=== PATIENT | male | born 1995 | race Caucasian/White ===

== ENCOUNTER 2017-01-17 22:56 | Emergency (ER) | payer OTHER ==
[~2017-01-17] VITALS: Ht 182.9 cm; Wt 147.4 kg
[2017-01-18] MEDS ORDERED: ONDANSETRON 4 MG (ZOFRAN) ORAL DISSOLVE TAB SL STA (00:01)
[2017-01-18] MEDS ORDERED: LACTATED RINGERS 1,000 ML IV ONE (00:32)
[2017-01-18 00:36] LABS: BILIRUBIN,URINE 1+ (NEGATIVE); KETONES,URINE 1+ (NEGATIVE); LEUKOCYTE ESTERASE ,URINE 1+ (NEGATIVE); NITRITE,URINE NEGATIVE (NEGATIVE); PH,URINE 5 (5-9); PROTEIN,URINE 2+ (NEGATIVE); UROBILINOGEN,URINE 1 MG/DL (NORMAL)
[2017-01-18 00:38] LABS: CALCIUM OXALATE CRYSTALS,UR RARE /LPF; SQUAMOUS EPITHELIAL CELL,UR RARE /HPF
[2017-01-18 00:39] LABS: WBC,URINE RARE /HPF
[2017-01-18 00:49] LABS: BASOPHILS % (AUTO) 0 % (0-10); EOSINOPHILS # (AUTO) 0.1 10^3/uL (0.0-0.3); EOSINOPHILS % (AUTO) 1 % (0-10); LYMPHOCYTES # (AUTO) 1.1 X 10^3 (1.0-4.0); LYMPHOCYTES % (AUTO) 6 % (12-44); MEAN CORPUSCULAR HEMOGLOBIN 30 PG (25-34); MEAN CORPUSCULAR HGB CONC 34 G/DL (32-36); MEAN CORPUSCULAR VOLUME 88 FL (80-99); MEAN PLATELET VOLUME 9.8 FL (7.4-10.4); MONOCYTES # (AUTO) 1.2 X 10^3 (0.0-1.0); MONOCYTES % (AUTO) 7 % (0-12); NEUTROPHILS % (AUTO) 86 % (42-75); PLATELET COUNT 205 10^3/uL (130-400); RED BLOOD COUNT 5.12 10^6/uL (4.35-5.85); RED CELL DISTRIBUTION WIDTH 12.4 % (10.0-14.5); WHITE BLOOD COUNT 17.5 10^3/uL (4.3-11.0)
[2017-01-18 01:11] LABS: BAND NEUTROPHILS 6 %; BASOPHILS % (MANUAL) 0 %; EOSINOPHILS % (MANUAL) 1 %; LYMPHOCYTES % (MANUAL) 6 %; NEUTROPHILS % (MANUAL) 78 %; REACTIVE LYMPHOCYTES 1 %
[2017-01-18 01:12] LABS: ALANINE AMINOTRANSFERASE 24 U/L (0-55); ALBUMIN 4.6 GM/DL (3.2-4.5); ALCOHOL < 10 MG/DL (<10); AMYLASE 47 U/L (25-125); ANION GAP 13 MMOL/L (5-14); ASPARTATE AMINO TRANSFERASE 20 U/L (5-34); BILIRUBIN,TOTAL 0.7 MG/DL (0.1-1.0); BLOOD UREA NITROGEN 13 MG/DL (7-18); BUN/CREATININE RATIO 11; CALCIUM 9.7 MG/DL (8.5-10.1); CARBON DIOXIDE 24 MMOL/L (21-32); CHLORIDE 104 MMOL/L (98-107); CREATININE SERUM 1.14 MG/DL (0.60-1.30); GFR ESTIMATED > 60; GLUCOSE 104 MG/DL (70-105); LIPASE 21 U/L (8-78); POTASSIUM 4.3 MMOL/L (3.6-5.0); SODIUM 141 MMOL/L (135-145)
[2017-01-18] MEDS ORDERED: PANTOPRAZOLE 40 MG/10 ML (PROTONIX) VIAL IV ONE (01:15)
[2017-01-18] MEDS ORDERED: IOHEXOL 350 MG/ML 100 ML (OMNIPAQUE 350) VIAL IV ONE (01:30)
[2017-01-18] MEDS ORDERED: NS 100 ML (IVPB) BAG IV ONE (01:30)
[2017-01-18] MEDS ORDERED: RX-HYOSCYAMINE 0.125 MG SL (LEVSIN) PPK#6 SL STA (02:13)
[2017-01-18] MEDS ORDERED: RX-ONDANSETRON 4 MG ODT (ZOFRAN) PPK #4 PO STA (02:13)
[2017-01-18] MEDS ORDERED: PANT40TA2 PO (02:19)
[2017-01-18] MEDS ORDERED: ONDA4TAB8 PO (02:19)
[2017-01-18] MEDS ORDERED: HYOS0.1283 SL (02:19)
--- NOTE | 2017-01-18 02:19 | ED GI ---
General Chief Complaint: Abdominal/GI Problems Stated Complaint: VOMITING WITH TRACES OF BLOOD Nursing Triage Note: PT TO ED 6 W/ C/O VOMITING X2 ET DIARRHEA X1 BETTING CLERKS. REPORTS SECOND TIME HE VOMITED IT APPEARED TO BE "BLOOD TINGED". PT ALSO STATES HE FEELS LIGHTHEADED ET "EXHAUSTION IN HIS BODY." NO OTHER C/O VOICED Sepsis Screen: No Definite Risk Source of Information: Patient History of Present Illness Time Seen By Provider: 23:25 Initial Comments PT C/O NAUSEA, VOMITING AND DIARRHEA--BEGAN JUST PRIOR TO ARRIVAL HAS VOMITED X 2 AT HOME, AND STATES HE VOMITED X 1 HERE IN WAITING ROOM--NOT WITNESSED STATES THE SECOND TIME HE VOMITED AT HOME "IT HAD A LITTLE BIT OF BLOOD IN IT" HAS HAD DIARRHEA X 2--ONCE AT HOME AND ONCE HERE IN WAITING ROOM--NO BLACK/ BLOODY/TARRY STOOLS NO FEVER HAS MILD LOWER ABDOMINAL CRAMPING JUST BEFORE THE VOMITS OR HAS DIARRHEA, THEN GOES AWAY AFTER VOMITING OR HAVING DIARRHEA VOIDED IN WAITING ROOM NO KNOWN SICK CONTACTS OR SUSPICIOUS FOODS NO HISTORY OF [facility] AT[facility] AT 1830 TONIGHT--FRIED CHICKEN SANDWICH, POTATO WEDGES AND A COOKIE. SAMUEL FULLER EARLIER TODAY STATES HE FEELS A LITTLE DIZZY AND FEELS "EXHAUSTION IN MY BODY" [employer] Allergies and Home Medications Allergies Coded Allergies: Penicillins (Verified Allergy, Unknown, 01/17/17) Home Medications Hyoscyamine Sulfate 0.125 Mg Tab.subl, 1-2 TAB SL Q4H, #15 Prescribed by: RAQUEL LEWIS on 01/18/17218 Ondansetron 4 Mg Tab.rapdis, 4 MG PO Q4H, #10 Prescribed by: RAQUEL LEWIS on 01/18/17218 Pantoprazole Sodium 40 Mg Tablet.dr, 40 MG PO DAILY, #15 Prescribed by: RAQUEL LEWIS on 01/18/17218 Review of Systems Constitutional: see HPI, No chills, No diaphoresis, dizziness, No fever, malaise, weakness EENTM: No Symptoms Reported Respiratory: No Symptoms Reported Cardiovascular: No Symptoms Reported Gastrointestinal: See HPI, Abdominal Pain, Diarrhea, Nausea, Poor Appetite, Poor Fluid Intake, Denies Rectal Bleeding, Vomiting Genitourinary: No Symptoms Reported Musculoskeletal: no symptoms reported Skin: no symptoms reported Psychiatric/Neurological: No Symptoms Reported Endocrine: No Symptoms Reported Hematologic/Lymphatic: No Symptoms Reported Past Nhrgdgm-Dwrslk-Damlkq Hx Patient Social History Alcohol Use: Regular Use (EVERY 1-2 WEEKS) Recreational Drug Use: Yes (THC) Smoking Status: Current Everyday Smoker (1/2 PPD, PLUS CHEWS TOBACCO) Type Used: Cigarettes, Smokeless Tobacco Recent Foreign Travel: No Contact w/Someone Who Travel: No Recent Infectious Disease Expo: No Recent Hopitalizations: No Surgeries HX Surgeries: No Respiratory Hx Respiratory Disorders: No Cardiovascular Hx Cardiac Disorders: Yes (QUIT TAKING MEDICATIONS) Cardiac Disorders: Hypertension Neurological Hx Neurological Disorders: No Reproductive System Hx Reproductive Disorders: No Genitourinary Hx Genitourinary Disorders: No Gastrointestinal Hx Gastrointestinal Disorders: No Musculoskeletal Hx Musculoskeletal Disorders: No Endocrine Hx Endocrine Disorders: No (OBESITY) HEENT HX ENT Disorders: No Cancer Hx Cancer: No Psychosocial Hx Psychiatric Problems: No Integumentary HX Skin/Integumentary Disorder: No Blood Transfusions Hx Blood Disorders: No Physical Exam Vital Signs VS - Last 72 Hours, by Label 01/17/17 01/18/17 23:16 00:33 Temp 98.0 Pulse 109 94 104 86 Resp 20 B/P (MAP) 139/95 Pulse Ox 97 O2 Delivery Room Air Capillary Refill : Less Than 3 Seconds General Appearance: no apparent distress, obese, other (DOES NOT APPEAR ILL) HEENT: PERRL/EOMI, normal ENT inspection, other (ORAL MUCOSA MOIST) Neck: normal inspection Respiratory: normal breath sounds, no respiratory distress, no accessory muscle use Cardiovascular: normal peripheral pulses, regular rate, rhythm, no murmur Gastrointestinal: normal bowel sounds, soft, no organomegaly, no pulsatile mass , No distended, No guarding, No rebound, tenderness (MILD EPIGASTRIC AND LUQ TENDERNESS), No hernia, No mass Extremities: normal inspection, normal capillary refill Back: normal inspection, no CVA tenderness 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, no motor/sensory deficits, alert, normal mood/affect, oriented x 3 Skin: normal color, warm/dry Progress/Results/Core Measures Results/Orders Lab Results Laboratory Tests Test 01/18/17 00:15 01/18/17 00:41 Range/Units Urine Color DARK YELLOW Urine Clarity SLIGHTLY CLOUDY Urine pH 5 5-9 Urine Specific [place] 1.025 H 1.016-1.022 Urine Protein 2+ H NEGATIVE Urine Glucose (UA) NEGATIVE NEGATIVE Urine Ketones 1+ H NEGATIVE Urine Nitrite NEGATIVE NEGATIVE Urine Bilirubin 1+ H NEGATIVE Urine Urobilinogen 1 NORMAL MG/DL Urine Leukocyte Esterase 1+ H NEGATIVE Urine RBC (Auto) NEGATIVE NEGATIVE Urine RBC NONE /HPF Urine WBC RARE /HPF Urine Squamous Epithelial Cells RARE /HPF Urine Crystals PRESENT H /LPF Urine Calcium Oxalate Crystals RARE H /LPF Urine Bacteria LARGE H /HPF Urine Casts NONE /LPF Urine Mucus MODERATE H /LPF Urine Culture Indicated YES Urine Opiates Screen NEGATIVE NEGATIVE Urine Oxycodone Screen NEGATIVE NEGATIVE Urine Methadone Screen NEGATIVE NEGATIVE Urine Propoxyphene Screen NEGATIVE NEGATIVE Urine Barbiturates Screen NEGATIVE NEGATIVE Ur Tricyclic Antidepressants Screen NEGATIVE NEGATIVE Urine Phencyclidine Screen NEGATIVE NEGATIVE Urine Amphetamines Screen NEGATIVE NEGATIVE Urine Methamphetamines Screen POSITIVE H NEGATIVE Urine Benzodiazepines Screen NEGATIVE NEGATIVE Urine Cocaine Screen NEGATIVE NEGATIVE Urine Cannabinoids Screen NEGATIVE NEGATIVE White Blood Count 17.5 H 4.3-11.0 10^3/uL Red Blood Count 5.12 4.35-5.85 10^6/uL Hemoglobin 15.5 13.3-17.7 G/DL Hematocrit 45 40-54 % Mean Corpuscular Volume 88 80-99 FL Mean Corpuscular Hemoglobin 30 25-34 PG Mean Corpuscular Hemoglobin Concent 34 32-36 G/DL Red Cell Distribution Width 12.4 10.0-14.5 % Platelet Count 205 130-400 10^3/uL Mean Platelet Volume 9.8 7.4-10.4 FL Neutrophils (%) (Auto) 86 H 42-75 % Lymphocytes (%) (Auto) 6 L 12-44 % Monocytes (%) (Auto) 7 0-12 % Eosinophils (%) (Auto) 1 0-10 % Basophils (%) (Auto) 0 0-10 % Neutrophils # (Auto) 15.0 H 1.8-7.8 X 10^3 Lymphocytes # (Auto) 1.1 1.0-4.0 X 10^3 Monocytes # (Auto) 1.2 H 0.0-1.0 X 10^3 Eosinophils # (Auto) 0.1 0.0-0.3 10^3/uL Basophils # (Auto) 0.0 0.0-0.1 10^3/uL Neutrophils % (Manual) 78 % Lymphocytes % (Manual) 6 % Monocytes % (Manual) 5 % Eosinophils % (Manual) 1 % Basophils % (Manual) 0 % Band Neutrophils 6 % Reactive Lymphocytes 1 % Blood Morphology Comment NORMAL Sodium Level 141 135-145 MMOL/L Potassium Level 4.3 3.6-5.0 MMOL/L Chloride Level 104 98-107 MMOL/L Carbon Dioxide Level 24 21-32 MMOL/L Anion Gap 13 5-14 MMOL/L Blood Urea Nitrogen 13 7-18 MG/DL Creatinine 1.14 0.60-1.30 MG/DL Estimat Glomerular Filtration Rate > 60 BUN/Creatinine Ratio 11 Glucose Level 104 70-105 MG/DL Calcium Level 9.7 8.5-10.1 MG/DL Total Bilirubin 0.7 0.1-1.0 MG/DL Aspartate Amino Transf (AST/SGOT) 20 5-34 U/L Alanine Aminotransferase (ALT/SGPT) 24 0-55 U/L Alkaline Phosphatase 54 40-136 U/L Total Protein 8.0 6.4-8.2 GM/DL Albumin 4.6 H 3.2-4.5 GM/DL Amylase Level 47 25-125 U/L Lipase 21 8-78 U/L Serum Alcohol < 10 <10 MG/DL My Orders Orders - RAQUEL LEWIS DO Drug Screen Stat (Urine) (01/17/17 23:37) Ua Culture If Indicated (01/17/17 23:37) Orthostatic Vital Signs (01/17/17 23:37) Alcohol (01/18/17 00:01) Amylase (01/18/17 00:01) Cbc With Automated Diff (01/18/17 00:01) Comprehensive Metabolic Panel (01/18/17 00:01) Lipase (01/18/17 00:01) Ondansetron Oral Dissolve Tab (Zofran (01/18/17 00:01) Saline Lock/Iv-Start (01/18/17 00:32) Saline Lock/Iv-Start (01/18/17 00:32) Lactated Ringers (Lr 1000 Ml Iv Solution (01/18/17 00:32) Urine Culture (01/18/17 00:15) Manual Differential (01/18/17 00:41) Pantoprazole Injection (Protonix Injecti (01/18/17 01:15) Ct Abdomen/Pelvis W (01/18/17 01:05) Iohexol Injection (Omnipaque 350 Mg/Ml 1 (01/18/17 01:30) Ns (Ivpb) (Sodium Chloride 0.9% Ivpb Bag (01/18/17 01:30) Rx-Ondansetron Po (Rx-Zofran Po) (01/18/17 02:13) Rx-Hyoscyamine Tab (Rx-Levsin Sl) (01/18/17 02:13) Orthostatic Vital Signs (01/18/17 02:23) Medications Given in ED Current Medications Medications Dose Ordered Sig/Bernadette Route Start Time Stop Time Status Last Admin Dose Admin Iohexol 100 ml ONCE ONCE IV 01/18/17 01:30 01/18/17 01:55 DC 01/18/17 01:39 100 ML Lactated Ringer's 1,000 ml @ 0 mls/hr Q0M ONCE IV 01/18/17 00:32 01/18/17 00:33 DC 01/18/17 00:48 1,000 MLS/HR Pantoprazole 40 mg ONCE ONCE IV 01/18/17 01:15 01/18/17 01:16 DC 01/18/17 01:19 40 MG Sodium Chloride 80 ml ONCE ONCE IV 01/18/17 01:30 01/18/17 01:55 DC 01/18/17 01:39 80 ML Vital Signs/I&O Vital Sign - Last 12Hours 01/17/17 01/18/17 23:16 00:33 Temp 98.0 Pulse 109 94 104 86 Resp 20 B/P (MAP) 139/95 Pulse Ox 97 O2 Delivery Room Air Blood Pressure Mean: 110 Progress Note : Progress Note ORTHOSTATICS + ON ARRIVAL WITH SIGNIFICANT DROP IN BP, AND PT FELT VERY DIZZY ON STANDING. ORTHOSTATICS MUCH IMPROVED AT DISMISSAL WITH NO DROP IN BP AND PT NO LONGER DIZZY ON STANDING. NAUSEA RESOLVED AND NO VOMITING OR DIARRHEA DURING ER STAY PT TOLERATING WATER PRIOR TO DISMISSAL PT STATES HE FEELS MUCH BETTER, AND WANTS TO GO HOME. Diagnostic Imaging Comments CT ABDOMEN/PELVIS--MILDLY PROMINENT FLUID-FILLED PROXIMAL SMALL BOWEL LOOPS, MILD WALL THICKENING. SUGGESTIVE OF ENTERITIS-INFECTIOUS VS INFLAMMATORY, WITH MILDLY PROMINENT MESENTERIC LYMPH NODES, LIKELY REACTIVE. MILDLY ENLARGED SPLEEN. PER [facility] VIA FAX @ [id number] Reviewed: Reviewed by Me Departure Impression Impression: Primary Impression: Gastroenteritis Additional Impressions: Dehydration UTI (urinary tract infection) Illicit drug use Disposition: HOME, SELF-CARE Condition: Improved Departure-Patient Inst. Referrals: NO,LOCAL PHYSICIAN (PCP) Primary Care Physician ARON GILBERT MD Patient Instructions: Dehydration, Adult (DC), Urinary Tract Infection, Adult ( DC), Viral Gastroenteritis Add. Discharge Instructions: CLEAR LIQUIDS--WATER, BROTH, JELLO, GATORADE--DRINK ENOUGH SO YOU ARE URINATING EVERY 2-3 HOURS WHILE AWAKE AFTER 24 HOURS, ADD BRATS DIET TO CLEAR LIQUIDS--BANANAS, RICE, APPLESAUCE, TOAST, SALTINES ACIDOPHILUS 2 PILLS 4 TIMES A DAY X 1 WEEK FOLLOW UP WITH [employer] [facility] TOMORROW IF NO BETTER All discharge instructions reviewed with patient and/or family. Voiced understanding. Scripts Sulfamethoxazole/Trimethoprim (Bactrim Ds Tablet) 1 Each Tablet 1 EACH PO BID, #20 TAB Prov: RAQUEL LEWIS DO 01/18/17 Hyoscyamine Sulfate (Levsin-Sl) 0.125 Mg Tab.subl 1-2 TAB SL Q4H for Abdominal Pain, #15 TAB Prov: RAQUEL LEWIS DO 01/18/17 Ondansetron (Zofran Odt) 4 Mg Tab.rapdis 4 MG PO Q4H for Nausea/Vomiting, #10 TAB Prov: RAQUEL LEWIS DO 01/18/17 Pantoprazole Sodium (Protonix) 40 Mg Tablet.dr 40 MG PO DAILY, #15 TAB Prov: RAQUEL LEWIS DO 01/18/17 RAQUEL LEWIS DO Jan 18, 2017 02:19
[2017-01-18 03:14] VITALS: BP 141/89
[2017-01-18] MEDS ORDERED: SULF1TAB35 PO (03:40)
--- NOTE | 2017-01-18 07:34 | Diagnostic Imaging Report ---
PROCEDURE: CT abdomen and pelvis with contrast. TECHNIQUE: Multiple contiguous axial images were obtained through the abdomen and pelvis after administration of intravenous contrast. INDICATION: Abdominal pain. CONTRAST: 100 cc Omnipaque 350 was given intravenously. COMPARISON STUDIES: None FINDINGS: The lung bases are clear. No pleural effusion or ascites is present. There is borderline fatty infiltration of the liver with no focal abnormalities. The gallbladder appears normal. The spleen is mildly enlarged spanning up to 14.3 cm. Pancreas, adrenal glands and kidneys appear normal. There are a couple of right lower quadrant mesenteric lymph nodes largest one measuring up to 1.3 cm. The appendix appears normal. Small bowel loops are fluid-filled and mildly distended measuring up to 3 cm proximally. Mild bowel wall thickening is present more proximally. No ascites, free air or loculated fluid collections are present. The osseous structures appear normal. IMPRESSION: 1. Findings are suggestive of enteritis. 2. Some slightly prominent lymph nodes in the right lower quadrant mesentery possible mesenteric adenitis. These could also be reactive. 3. Mildly enlarged spleen. 4. Borderline fatty infiltration of the liver. Dictated by: Dictated on workstation # [id number]
--- OUTSIDE RECORDS SUMMARY | 2017-01-18 11:40 | XMS REPORT | Continuity of Care Document ---
Author Author [facility] Address Unknown Phone Unavailable Allergies Active Description Code Type Severity Reaction Onset Reported/Identified Relationship to Patient Clinical Status Yes Penicillins Drug Allergy N/A N/A 04/18/2013 Medications Problems Date Dx Coded Attending Type Code Diagnosis Diagnosed By 04/18/2013 OLIVE WOODRUFF MD 465.9 UPPER RESPIRATORY INFECTION Procedures Results Encounters ACCT No. Visit Date/Time Discharge Status Pt. Type Provider Facility Loc./Unit Complaint [id number] 04/18/2013 10:14:00 04/18/2013 23: 59:59 CLS Outpatient OLIVE WOODRUFF MD
== END 2017-01-18 03:14 | disposition home or self-care (01) ==
LOC: ER 22:59
DX: K52.9 Noninfective gastroenteritis and colitis, unspecified (principal); N39.0 Urinary tract infection, site not specified; E86.0 Dehydration; I10 Essential (primary) hypertension; E66.9 Obesity, unspecified; F17.210 Nicotine dependence, cigarettes, uncomplicated; F12.10 Cannabis abuse, uncomplicated; Z68.41 Body mass index [BMI] 40.0-44.9, adult
CPT/HCPCS: 36415; 74177; 80053; 80306; 80320; 81000; 82150; 83690; 85007; 85027; 87088; 96361; 96365

== ENCOUNTER 2017-01-29 17:05 | Emergency (ER) | payer OTHER ==
[~2017-01-29] VITALS: Ht 182.9 cm; Wt 147.4 kg
[~2017-01-29 17:05] MED LIST: HYOS0.1283 SL; ONDA4TAB8 PO; PANT40TA2 PO; SULF1TAB35 PO
--- OUTSIDE RECORDS SUMMARY | 2017-01-29 17:09 | XMS REPORT | Continuity of Care Document ---
Author Author [facility] Address Unknown Phone Unavailable Allergies Active Description Code Type Severity Reaction Onset Reported/Identified Relationship to Patient Clinical Status Yes Penicillins Drug Allergy N/A N/A 04/18/2013 Medications Problems Date Dx Coded Attending Type Code Diagnosis Diagnosed By 04/18/2013 OLIVE WOODRUFF MD 465.9 UPPER RESPIRATORY INFECTION Procedures Results Encounters ACCT No. Visit Date/Time Discharge Status Pt. Type Provider Facility Loc./Unit Complaint [id number] 04/18/2013 10:14:00 04/18/2013 23: 59:59 CLS Outpatient OLIVE WOODRUFF MD
--- NOTE | 2017-01-29 17:30 | ED Lower Extremity ---
General Chief Complaint: Lower Extremity Stated Complaint: LT LEG SWELLING/TENDERNESS Nursing Triage Note: pt reports l lower leg pain x 2 days and swelling starting today. Nursing Sepsis Screen: No Definite Risk Source: patient Exam Limitations: no limitations History of Present Illness Time seen by provider: 17:27 Initial Comments To ER with left lower leg pain and swelling at the distal aspect of the leg. This began 2 days ago. There are some red patches to the leg as well. Onset: other Severity: moderate Pain/Injury Location: left leg Modifying Factors: Worse With Movement Allergies and Home Medications Allergies Coded Allergies: Penicillins (Verified Allergy, Unknown, 01/17/17) Home Medications Cefdinir 300 Mg Capsule, 300 MG PO BID, #14 Prescribed by: JOSSELYN CARDOZA on 01/29/17 1818 Hyoscyamine Sulfate 0.125 Mg Tab.subl, 1-2 TAB SL Q4H, #15 Prescribed by: RAQUEL LEWIS on 01/18/17 0219 Ondansetron 4 Mg Tab.rapdis, 4 MG PO Q4H, #10 Prescribed by: RAQUEL LEWIS on 01/18/17 0219 Pantoprazole Sodium 40 Mg Tablet.dr, 40 MG PO DAILY, #15 Prescribed by: RAQUEL LEWIS on 01/18/17 0219 Sulfamethoxazole/Trimethoprim 1 Each Tablet, 1 EACH PO BID, #20 Prescribed by: RAQUEL LEWIS on 01/18/17 0340 Constitutional: see HPI EENTM: see HPI Respiratory: no symptoms reported Cardiovascular: no symptoms reported Genitourinary: no symptoms reported Musculoskeletal: no symptoms reported Skin: see HPI Psychiatric/Neurological: No Symptoms Reported Past Hjdhfsf-Frkcji-Dxmyta Hx Patient Social History Alcohol Use: Occasionally Uses Alcohol Beverage of Choice: Whiskey Recreational Drug Use: No Smoking Status: Current Everyday Smoker Type Used: Cigarettes, Smokeless Tobacco Recent Foreign Travel: No Contact w/Someone Who Travel: No Recent Infectious Disease Expo: No Recent Hopitalizations: No Physical Abuse: No Sexual Abuse: No Mistreated: No Fear: No Surgeries History of Surgeries: No Respiratory History of Respiratory Disorde: No Cardiovascular History of Cardiac Disorders: Yes (QUIT TAKING MEDICATIONS) Cardiac Disorders: Hypertension Neurological History of Neurological Disord: No Reproductive System Hx Reproductive Disorders: No Genitourinary History of Genitourinary Disor: No Gastrointestinal History of Gastrointestinal Di: No Musculoskeletal History of Musculoskeletal Dis: No Endocrine History of Endocrine Disorders: No (OBESITY) HEENT History of HEENT Disorders: No Cancer History of Cancer: No Psychosocial History of Psychiatric Problem: No Suicide Risk Score: 0 Integumentary History of Skin or Integumenta: No Blood Transfusions History of Blood Disorders: No Physical Exam Vital Signs Vital Sign - Last 12Hours 01/29/17 17:14 Temp 98.8 Pulse 107 Resp 20 B/P (MAP) 152/99 Pulse Ox 98 Capillary Refill : Less Than 3 Seconds General Appearance: WD/WN, no apparent distress HEENT: PERRL/EOMI, normal ENT inspection Neck: non-tender, full range of motion Respiratory: no respiratory distress, no accessory muscle use Gastrointestinal: normal bowel sounds, non tender Hips: bilateral hip non-tender, bilateral hip normal inspection, bilateral hip normal range of motion Legs: left leg other (there is erythema without induration to the posterior aspect of the left calf. There are circular patches of erythematous and slightly indurated/nodules to the anterior portion of the left leg. Erythematous patches to the anterior and posterior aspect of the leg are warm, without fluctuance or drainage. There are no open wounds. He is currently on Bactrim antibiotics so I would be surprised if this was a cellulitis.) Knees: bilateral knee non-tender, bilateral knee normal inspection, bilateral knee normal range of motion Ankles: bilateral ankle non-tender, bilateral ankle normal inspection, bilateral ankle normal range of motion Feet: bilateral foot non-tender, bilateral foot normal inspection, bilateral foot normal range of motion Neurologic/Psychiatric: alert, normal mood/affect, oriented x 3 Skin: normal color, warm/dry Progress/Results/Core Measures Results/Orders Lab Results Laboratory Tests Test 01/29/17 17:40 Range/Units White Blood Count 6.7 4.3-11.0 10^3/uL Red Blood Count 4.76 4.35-5.85 10^6/uL Hemoglobin 14.5 13.3-17.7 G/DL Hematocrit 42 40-54 % Mean Corpuscular Volume 88 80-99 FL Mean Corpuscular Hemoglobin 31 25-34 PG Mean Corpuscular Hemoglobin Concent 35 32-36 G/DL Red Cell Distribution Width 12.6 10.0-14.5 % Platelet Count 198 130-400 10^3/uL Mean Platelet Volume 9.3 7.4-10.4 FL Neutrophils (%) (Auto) 62 42-75 % Lymphocytes (%) (Auto) 23 12-44 % Monocytes (%) (Auto) 10 0-12 % Eosinophils (%) (Auto) 3 0-10 % Basophils (%) (Auto) 2 0-10 % Neutrophils # (Auto) 4.2 1.8-7.8 X 10^3 Lymphocytes # (Auto) 1.6 1.0-4.0 X 10^3 Monocytes # (Auto) 0.7 0.0-1.0 X 10^3 Eosinophils # (Auto) 0.2 0.0-0.3 10^3/uL Basophils # (Auto) 0.1 0.0-0.1 10^3/uL Erythrocyte Sedimentation Rate 20 H 0-15 MM/HR D-Dimer < 0.27 0.00-0.49 UG/ML Sodium Level 141 135-145 MMOL/L Potassium Level 3.6 3.6-5.0 MMOL/L Chloride Level 107 98-107 MMOL/L Carbon Dioxide Level 22 21-32 MMOL/L Anion Gap 12 5-14 MMOL/L Blood Urea Nitrogen 11 7-18 MG/DL Creatinine 1.04 0.60-1.30 MG/DL Estimat Glomerular Filtration Rate > 60 BUN/Creatinine Ratio 11 Glucose Level 99 70-105 MG/DL Calcium Level 9.4 8.5-10.1 MG/DL C-Reactive Protein High Sensitivity 4.05 H 0.00-0.50 MG/DL My Orders Orders - JOSSELYN CARDOZA APRN Cbc With Automated Diff (01/29/17 17:23) Fibrin Degradation Products (01/29/17 17:23) Erythrocyte Sedimentation Rate (01/29/17 17:26) Hs C Reactive Protein (01/29/17 17:26) Basic Metabolic Panel (01/29/17 17:26) Dexamethasone Pf Injection (Decadron Pf (01/29/17 18:30) Ceftriaxone Injection (Rocephin Injectio (01/29/17 18:30) Lidocaine 1% Injection (Xylocaine 1% Inj (01/29/17 18:30) Vital Signs/I&O Vital Sign - Last 12Hours 01/29/17 17:14 Temp 98.8 Pulse 107 Resp 20 B/P (MAP) 152/99 Pulse Ox 98 Blood Pressure Mean: 116 Departure Communication (Admissions) Progress Notes He states he has an appointment with [employer] [facility] on Sunday of this week. The erythematous patch to the front and back of the left calf or warm to touch. There is no petechiae or nonblanching rash. He does not have this rash to any other portion of his body. He was here about 10 days ago for gastrointestinal illness. Combine that with his current lower extremities or rash [place] purpura could be considered though there is no purpura. The differential here is wide. He is currently on Bactrim so I would be less concerned with a cellulitis, though that is certainly how this appears. I will stop the Bactrim, change to Cedinir and given a 10 mg injection of Decadron. Impression Impression: Primary Impression: Cellulitis Disposition: HOME, SELF-CARE Condition: Stable Departure-Patient Inst. Decision time for Depature: 18:17 Referrals: NO,LOCAL PHYSICIAN (PCP) Primary Care Physician ARON GILBERT MD Patient Instructions: Cellulitis (Skin Infection), Adult (DC) Add. Discharge Instructions: 1. Take the antibiotics as directed. Stop the trimethoprim/sulfamethoxazole that you were given during last week's visit. 2. [facility]-up with [facility] on Sunday or of this week for recheck 3. Return to ER before then for any high fevers, worsening redness or pain. All discharge instructions reviewed with patient and/or family. Voiced understanding. Scripts Cefdinir (Cefdinir) 300 Mg Capsule 300 MG PO BID, #14 CAP Prov: JOSSELYN CARDOZA APRN 01/29/17 JOSSELYN CARDOZA APRN Jan 29, 2017 17:30
[2017-01-29 17:51] LABS: BASOPHILS # (AUTO) 0.1 10^3/uL (0.0-0.1); BASOPHILS % (AUTO) 2 % (0-10); EOSINOPHILS # (AUTO) 0.2 10^3/uL (0.0-0.3); EOSINOPHILS % (AUTO) 3 % (0-10); LYMPHOCYTES # (AUTO) 1.6 X 10^3 (1.0-4.0); LYMPHOCYTES % (AUTO) 23 % (12-44); MEAN CORPUSCULAR HEMOGLOBIN 31 PG (25-34); MEAN CORPUSCULAR HGB CONC 35 G/DL (32-36); MEAN CORPUSCULAR VOLUME 88 FL (80-99); MEAN PLATELET VOLUME 9.3 FL (7.4-10.4); MONOCYTES # (AUTO) 0.7 X 10^3 (0.0-1.0); MONOCYTES % (AUTO) 10 % (0-12); NEUTROPHILS # (AUTO) 4.2 X 10^3 (1.8-7.8); NEUTROPHILS % (AUTO) 62 % (42-75); PLATELET COUNT 198 10^3/uL (130-400); RED BLOOD COUNT 4.76 10^6/uL (4.35-5.85); RED CELL DISTRIBUTION WIDTH 12.6 % (10.0-14.5); WHITE BLOOD COUNT 6.7 10^3/uL (4.3-11.0)
[2017-01-29 18:09] LABS: ANION GAP 12 MMOL/L (5-14); BLOOD UREA NITROGEN 11 MG/DL (7-18); BUN/CREATININE RATIO 11; CALCIUM 9.4 MG/DL (8.5-10.1); CARBON DIOXIDE 22 MMOL/L (21-32); CHLORIDE 107 MMOL/L (98-107); CREATININE SERUM 1.04 MG/DL (0.60-1.30); GFR ESTIMATED > 60; GLUCOSE 99 MG/DL (70-105); POTASSIUM 3.6 MMOL/L (3.6-5.0); SODIUM 141 MMOL/L (135-145); hs C REACTIVE PROTEIN 4.05 MG/DL (0.00-0.50)
[2017-01-29 18:10] LABS: ERYTHROCYTE SEDIMENTATION RATE 20 MM/HR (0-15)
[2017-01-29] MEDS ORDERED: CEFD300C3 PO (18:18)
[2017-01-29] MEDS ORDERED: DEXAMETHASONE 10 MG/ML (DECADRON) 1 ML VIAL ONE (18:20)
[2017-01-29] MEDS ORDERED: cefTRIAXone 1 GM (ROCEPHIN) VIAL IM ONE (18:30)
[2017-01-29] MEDS ORDERED: DEXAMETHASONE PF 10 MG/ML (DECADRON) VIAL IM ONE (18:30)
[2017-01-29] MEDS ORDERED: LIDOCAINE 1% INJ 20 ML (XYLOCAINE) VIAL INJ ONE (18:30)
[2017-01-29 18:38] VITALS: BP 120/70
== END 2017-01-29 18:38 | disposition home or self-care (01) ==
LOC: EDUNIT# 17:05 → ER 17:06
DX: L03.116 Cellulitis of left lower limb (principal); I10 Essential (primary) hypertension; F17.210 Nicotine dependence, cigarettes, uncomplicated
CPT/HCPCS: 36415; 80048; 85025; 85379; 85652; 86141; 96372; 99284

== ENCOUNTER → 2017-01-31 | Outpatient (CLI) | payer OTHER ==
[~2017-01-31] MED LIST changes: +CEFD300C3 PO
--- NOTE | 2017-01-31 14:41 | Diagnostic Imaging Report ---
PROCEDURE: US left lower extremity venous. TECHNIQUE: Multiple real-time grayscale images were obtained over the left lower extremity in various projections. Additional duplex Doppler and color Doppler images were also obtained. INDICATION: Left leg swelling Examination of the left leg shows normal augmentation, compression and color Doppler flow in the deep venous system. There is no deep venous thrombosis or other abnormality seen. IMPRESSION: No abnormality is seen. Dictated by: Dictated on workstation # [id number]
== END ==
LOC: RAD 14:08
PROVIDERS: ATTEND Internal Medicine
DX: R60.0 Localized edema (principal)